=== PATIENT | female | born 1970 | race Caucasian/White ===

== ENCOUNTER 2022-10-18 06:08 | Day surgery (SDC) | payer OTHER ==
[~2022-10-18] VITALS: Ht 157.5 cm; Wt 92.5 kg
[2022-10-18] MEDS ORDERED: MEPERIDINE 50 MG/ML VIAL ONE (08:30)
[2022-10-18] MEDS ORDERED: SIMETHICONE 40 MG/0.6 ML ML ONE (08:30)
[2022-10-18] MEDS ORDERED: MIDAZOLAM HCL 5 MG/5 ML VIAL ONE ×2 (08:30→09:06)
[2022-10-18] MEDS ORDERED: ONDANSETRON HCL 4 MG/2 ML VIAL ONE (09:18)
[2022-10-18 15:03] VITALS: BP_SYST 111
== END 2022-10-18 10:50 | disposition home or self-care (01) ==
LOC: SDS 06:08 → SMU 06:27 → SDS 10:50
PROVIDERS: ATTEND Internal Medicine
DX: Z12.11 Encounter for screening for malignant neoplasm of colon (principal); K63.5 Polyp of colon; K57.30 Diverticulosis of large intestine without perforation or abscess without bleeding; K64.8 Other hemorrhoids; Z80.0 Family history of malignant neoplasm of digestive organs; Z79.899 Other long term (current) drug therapy; Z20.822 Contact with and (suspected) exposure to COVID-19
CPT/HCPCS: 45385; 87426; 82962; 36415; 88305; 99152; 99153; G0378; J2250; J2405; J2175